=== PATIENT | female | born 1935 | race Caucasian/White ===

== ENCOUNTER 2022-02-17 10:44 | Emergency (ER) | payer MEDICARE ==
[~2022-02-17] VITALS: Ht 170.2 cm; Wt 83.0 kg
[2022-02-17] MEDS ORDERED: CALC-1210 PO (11:26)
[2022-02-17] MEDS ORDERED: ROSU10TA2 PO (11:26)
[2022-02-17] MEDS ORDERED: ASPI-869 PO (11:26)
[2022-02-17] MEDS ORDERED: UMEC1BLS IH (11:31)
[2022-02-17] MEDS ORDERED: OLME1TAB16 PO (11:32)
[2022-02-17] MEDS ORDERED: OLME1TAB92 PO (11:49)
[2022-02-17 12:11] LABS: HEMATOCRIT 45.2 % (31.2-41.9); MEAN CORPUSCULAR HEMOGLOBIN 30.1 uug (24.7-32.8); MEAN CORPUSCULAR VOLUME 89.1 fL (75.5-95.3); PLATELET COUNT (AUTO) 211 K/uL (179-408)
[2022-02-17 12:16] LABS: CARBON DIOXIDE 29 mmol/L (21-32); CHLORIDE 103 mmol/L (98-107); CREATININE 0.9 mg/dL (0.6-1.3); GLUCOSE 110 mg/dL (74-106); POTASSIUM 3.8 mmol/L (3.5-5.1); UREA NITROGEN, BLOOD 21 mg/dL (7-18)
[2022-02-17 12:24] LABS: ETHANOL < 3 MG/DL (0-0)
[2022-02-17 12:25] LABS: ALANINE AMINOTRANSFERASE 25 U/L (14-59); ALKALINE PHOSPHATASE 52 U/L (50-136); ASPARTATE AMINOTRANSFERASE 18 U/L (15-37); BILIRUBIN,DIRECT 0.1 mg/dL (0.0-0.2); BILIRUBIN,TOTAL 0.6 mg/dL (0.2-1.0); TOTAL PROTEIN, SERUM 7.4 g/dL (6.4-8.2)
[2022-02-17 12:26] LABS: ACETAMINOPHEN < 0.0 ug/mL (10-30)
[2022-02-17 13:00] LABS: THYROID STIMULATING HORMONE 3.213 mIU/mL (0.358-3.740)
--- NOTE | 2022-02-17 13:45 | NUR ---
IV removed. Catheter intact and site benign. Pressure and 4x4 gauze applied to site. No bleeding noted.
--- NOTE | 2022-02-17 13:52 | NUR ---
Patient discharged to home in stable condition. Written and verbal after care instructions given. Patient verbalizes understanding of instructions. Stressed follow up or return to ER for worsening s/s.
[2022-02-17 14:16] VITALS: BP 133/60
== END 2022-02-17 14:18 | disposition home or self-care (01) ==
LOC: ER 10:46
DX: R55 Syncope and collapse (principal); E86.0 Dehydration; I10 Essential (primary) hypertension; Z86.73 Personal history of transient ischemic attack (TIA), and cerebral infarction without residual deficits; E78.5 Hyperlipidemia, unspecified; R73.03 Prediabetes
CPT/HCPCS: 36415; 70450; 71045; 83605; 84443; 84484; 85025; 85730; 87040; 93005; A4663; G0480